=== PATIENT | male | born 1985 | race Caucasian/White ===

== ENCOUNTER 2022-09-04 09:10 | Inpatient (IN) | payer BC ==
[2022-09-04] MEDS ORDERED: Sodium Chloride 0.9% 2.5 ML Syringe FLUSH PRN ×2 (09:42→14:47)
[2022-09-04] MEDS ORDERED: Sodium Chloride 0.9% 10 ML Syringe FLUSH PRN ×2 (09:42→14:47)
[2022-09-04 10:22] LABS: CARBON DIOXIDE,CO2 28.1 mmol/L (21.0-32.0)
[2022-09-04] MEDS ORDERED: Iopamidol 755 MG/ML 500 ML Multipack Bottle IVPUSH ONE (10:37)
[2022-09-04] MEDS ORDERED: cefTRIAXone 1 GM in Sodium Chloride 0.9% 50 ML IV ONE ×4 (12:46→15:00)
[2022-09-04] MEDS ORDERED: metroNIDAZOLE/Normal Saline 500 MG in Premix Bag 1 BAG IV ONE (12:47)
[2022-09-04] MEDS ORDERED: Ondansetron 4 MG/2 ML SDV IVPUSH PRN (15:00)
[2022-09-04] MEDS ORDERED: Enoxaparin 40 MG/0.4 ML Syringe SUBCUT SCH (15:00)
[2022-09-04] MEDS: Morphine 2 MG/ML SYRINGE IVPUSH PRN ×2 (15:37→17:36)
[2022-09-04] MEDS: Pantoprazole 40 MG in Sodium Chloride 0.9% 10 ML IVPUSH SCH (15:50)
[2022-09-04] MEDS: Sodium Chloride 0.9% 1,000 ML IV SCH (15:54)
[2022-09-04] MEDS: oxyCODONE 5 MG Tab PO PRN (20:32)
[2022-09-04] MEDS: metroNIDAZOLE/Normal Saline 500 MG in Premix Bag 1 BAG IV SCH (21:33)
[2022-09-05] MEDS: Sodium Chloride 0.9% 1,000 ML IV SCH ×5 (01:33→21:45)
[2022-09-05] MEDS: Morphine 2 MG/ML SYRINGE IVPUSH PRN ×4 (01:34→19:51)
[2022-09-05] MEDS: metroNIDAZOLE/Normal Saline 500 MG in Premix Bag 1 BAG IV SCH ×3 (05:53→21:45)
[2022-09-05 06:49] LABS: CARBON DIOXIDE,CO2 27.5 mmol/L (21.0-32.0); POTASSIUM,K 3.5 mmol/L (3.5-5.1)
[2022-09-05] MEDS: oxyCODONE 5 MG Tab PO PRN (07:27)
[2022-09-05] MEDS: Pantoprazole 40 MG in Sodium Chloride 0.9% 10 ML IVPUSH SCH (14:30)
[2022-09-05] MEDS ORDERED: cefTRIAXone 2 GM in Premix Bag 1 BAG IV SCH (15:00)
[2022-09-06] MEDS: Sodium Chloride 0.9% 1,000 ML IV SCH ×3 (00:43→07:52)
[2022-09-06] MEDS: metroNIDAZOLE/Normal Saline 500 MG in Premix Bag 1 BAG IV SCH (05:26)
[2022-09-06 06:53] LABS: CARBON DIOXIDE,CO2 27.9 mmol/L (21.0-32.0); POTASSIUM,K 3.8 mmol/L (3.5-5.1)
== END 2022-09-06 12:22 | disposition home or self-care (01) | DRG 244 ==
LOC: MW.ED 09:10 → MW.MS 12:54
PROVIDERS: ADMIT Internal Medicine; ATTEND Internal Medicine
DX: K57.20 Diverticulitis of large intestine with perforation and abscess without bleeding (principal); K59.00 Constipation, unspecified; Z79.899 Other long term (current) drug therapy
CPT/HCPCS: 36415; 74177; 74177-26; 80053; 83735; 85025; 87040; 96365; 96368; 99221; 99231; 99238; 99285; 99285-25; A9270-GY; C9113; J0696; J2270; J3490; J7030; J7050; Q9967